=== PATIENT | female | born 1960 | race Caucasian/White ===

== ENCOUNTER 2019-03-12 04:46 | Emergency (ER) | payer MEDICARE ==
[~2019-03-12] VITALS: Ht 165.1 cm; Wt 102.1 kg
--- OUTSIDE RECORDS SUMMARY | ~2019-03-12 | XMS | Clinical Summary ---
Demographics + + + | Address | [address] | | | [place] [address] | + + + | Home Phone | | + + + | Preferred Language | Unknown | + + + | Marital Status | | + + + | Episcopalian Affiliation | Unknown | + + + | Race | Unknown | + + + | Ethnic Group | Unknown | + + + Author + + + | Author | [facility] | + + + | Organization | [facility] | + + + | Address | Unknown | + + + | Phone | Unavailable | + + + Support + + +---------+ + | Name | Relationship | Address | Phone | + + +---------+ + | Leonor Warner | ECON | Unknown | | + + +---------+ + Care Team Providers + +------+ + | Care Rural Service Engineer Name | Role | Phone | + +------+ + | Daisha Fletcher | PP | Unavailable | + +------+ + Allergies + + + + + + | Active Allergy | Reactions | Severity | Noted | Comments | | | | | Date | | + + + + + + | Penicillins | Mental Changes | High | 01/12/20 | Passed out as | | | | | 17 | child | + + + + + + Current Medications + + +-------+---------+------+------+-------+ | Prescription | Sig. | Disp. | Refills | Star | End | Statu | | | | | | t | Date | s | | | | | | Date | | | + + +-------+---------+------+------+-------+ | Cholecalciferol | Take 5,000 Units by | | | | | Activ | | (VITAMIN D-3 PO) | mouth daily. | | | | | e | + + +-------+---------+------+------+-------+ | traMADol (ULTRAM) | Take 50 mg by mouth | | | | | Activ | | 50 MG tablet | every 6 (six) hours | | | | | e | | | as needed for Pain. | | | | | | + + +-------+---------+------+------+-------+ | | Take 1 tablet by | | | | | Activ | | HYDROcodone-acetamin | mouth every 6 (six) | | | | | e | | ophen (NORCO) | hours as needed for | | | | | | | 7.5-325 MG per | Pain. | | | | | | | tablet | | | | | | | + + +-------+---------+------+------+-------+ | gabapentin | Take 300 mg by mouth | | | | | Activ | | (NEURONTIN) 600 MG | 3 (three) times | | | | | e | | tablet | daily. | | | | | | + + +-------+---------+------+------+-------+ | glipiZIDE | Take 2.5 mg by mouth | | | | | Activ | | (GLUCOTROL) 2.5 MG | daily. | | | | | e | | 24 hr tablet | | | | | | | + + +-------+---------+------+------+-------+ | BUPROPION HCL PO | Take 300 mg by | | | | | Activ | | | mouth. | | | | | e | + + +-------+---------+------+------+-------+ | | Take 1 tablet by | | | | | Activ | | lisinopril-hydrochlo | mouth daily. | | | | | e | | rothiazide | | | | | | | | (ZESTORETIC) 20-12.5 | | | | | | | | MG per tablet | | | | | | | + + +-------+---------+------+------+-------+ | METFORMIN HCL PO | Take 1,000 mg by | | | | | Activ | | | mouth 2 (two) times | | | | | e | | | daily. | | | | | | + + +-------+---------+------+------+-------+ | Albuterol Sulfate | Inhale 2 puffs into | | | | | Activ | | (VENTOLIN HFA IN) | the lungs as needed. | | | | | e | + + +-------+---------+------+------+-------+ Active Problems + + + | Problem | Noted Date | + + + | Right shoulder pain | 01/12/2015 | + + + Family History + + +------+ + | Medical History | Relation | Name | Comments | + + +------+ + | Cancer | Father | | | + + +------+ + | Heart attack | Mother | | | + + +------+ + | Hypertension | Mother | | | + + +------+ + | Stroke | Mother | | | + + +------+ + + +------+--------+ + | Relation | Name | Status | Comments | + +------+--------+ + | Father | | Alive | | + +------+--------+ + | Mother | | | | + +------+--------+ + Social History + +-------+ +--------+------+ | Tobacco Use | Types | Packs/Day | Years | Date | | | | | Used | | + +-------+ +--------+------+ | Never Smoker | | | | | + +-------+ +--------+------+ + + +---------+ + | Alcohol Use | Drinks/We | oz/Week | Comments | | | ek | | | + + +---------+ + | Yes | | | once a week | + + +---------+ + + + + | Sex Assigned at | Date Recorded | | | | + + + | Not on file | | + + + Last Filed Vital Signs + + + + | Vital Sign | Reading | Time Taken | + + + + | Blood Pressure | 134/90 | 01/12/2015 4:00 PM PST | + + + + | Pulse | 96 | 01/12/2015 4:00 PM PST | + + + + | Temperature | 36.8 C (98.3 F) | 01/12/2015 2:00 PM PST | + + + + | Respiratory Rate | 18 | 01/12/2015 4:00 PM PST | + + + + | Oxygen Saturation | 96% | 01/12/2015 4:00 PM PST | + + + + | Inhaled Oxygen | - | - | | Concentration | | | + + + + | Weight | 124.7 kg (275 lb) | 01/12/2015 2:00 PM PST | + + + + | Height | 165.1 cm (5' 5") | 01/12/2015 2:00 PM PST | + + + + | Body Mass Index | 45.76 | 01/12/2015 2:00 PM PST | + + + + Plan of Treatment Not on file Results Not on filefrom Last 3 Months Insurance + +--------+ +------+-------+ + | Payer | Benefi | Subscriber | Type | Phone | Address | | | t Plan | ID | | | | | | / | | | | | | | Group | | | | | + +--------+ +------+-------+ + | MEDICAID | JUHI | [id number] | | | [address] | | | N | | | | [place], [place] | | | [place] | | | | [phone] | | | HEEL SCOURER | | | | | + +--------+ +------+-------+ + + +--------+ +--------+ + + | Guarantor Name | Accoun | Relation to | Date | Phone | Billing Address | | | t Type | Patient | of | | | | | | | | | | + +--------+ +--------+ + + | REYNA FOWLER | Person | Self [birth year] Home: | [address] | | | al/Fam | | 1959 | [phone] [place] | | | [place] | | | [phone] | [phone] | + +--------+ +--------+ + +
--- OUTSIDE RECORDS SUMMARY | ~2019-03-12 | XMS | Clinical Summary ---
Demographics + + + | Address | [address] | | | [place] [address] | + + + | Home Phone | | + + + | Preferred Language | Unknown | + + + | Marital Status | | + + + | Hindu Affiliation | Unknown | + + + | Race | Unknown | + + + | Ethnic Group | Unknown | + + + Author + + + | Author | [facility] | + + + | Organization | [facility] | + + + | Address | Unknown | + + + | Phone | Unavailable | + + + Support + + +---------+ + | Name | Relationship | Address | Phone | + + +---------+ + | Leonor Warner | ECON | Unknown | | + + +---------+ + Care Team Providers + +------+ + | Care Strap Stitcher Name | Role | Phone | + [...] +------+-------+ + | MEDICAID | JUHI | [id number] | | | [address] | | | N | | | | [place], [place] | | | [place] | | | | [phone] | | | TOBAC[employer] GRADER | | | | | + +--------+ [...] | [place] | | | [phone] | [phone] | + +--------+ +--------+ + +
[2019-03-12] MEDS ORDERED: METFORMIN HCL500 M1 PO (05:01)
[2019-03-12] MEDS ORDERED: GLIPIZIDE XL10 MG PO (05:01)
[2019-03-12] MEDS ORDERED: [UNRECOGNIZED DRUG - OTHER] (05:02)
[2019-03-12] MEDS ORDERED: ATORVASTATIN CA20 MG PO (05:02)
[2019-03-12] MEDS ORDERED: LISINOPRIL-HCT1 EAC1 PO (05:02)
--- NOTE | 2019-03-12 13:42 | EKG ---
[facility] [address] [place], [place] [address] Signed Normal sinus rhythm Right bundle branch block Left anterior fascicular block Bifascicular block Minimal voltage criteria for LVH, may be normal variant Possible Lateral infarct , age undetermined Abnormal ECG No previous ECGs available Confirmed by OFELIA MACKENZIE DO ([id number]) on 03/12/2019 1:42:00 PM Electronically Signed By: OFELIA MACKENZIE DO 03/12/19 1342 PATIENT NAME: ERENDIRA METCALF CAIO Electrocardiogram DATE OF : 64 PHYSICIAN: OFELIA MACKENZIE DO REPORT #: [id number] REPORT IS CONFIDENTIAL AND NOT TO BE RELEASED WITHOUT AUTHORIZATION
== END 2019-03-12 06:43 | disposition home or self-care (01) ==
LOC: ED 04:46
DX: R07.89 Other chest pain (principal); Z00.01 Encounter for general adult medical examination with abnormal findings; I10 Essential (primary) hypertension; E11.9 Type 2 diabetes mellitus without complications; Z90.49 Acquired absence of other specified parts of digestive tract; Z88.0 Allergy status to penicillin; Z88.1 Allergy status to other antibiotic agents; Z79.84 Long term (current) use of oral hypoglycemic drugs
CPT/HCPCS: 71045; 80053; 84484; 85025; 85379; 93005; 93010; 96374; 99285-25; J1885

== ENCOUNTER 2022-04-18 05:55 | Day surgery (SDC) | payer MEDICARE ==
[~2022-04-18] VITALS: Ht 165.1 cm; Wt 113.2 kg
[~2022-04-18 05:55] MED LIST: ATORVASTATIN CA20 MG PO; BAYER CHEWABLE81 MG PO; BUPROPION XL300 MG PO; GABAPENTIN600 MG PO; GLIPIZIDE XL10 MG PO; LISINOPRIL-HCT1 EAC1 PO; METFORMIN HCL500 M1 PO; MULTI VITAMIN1 EACH PO; OSTERA TABLET1 EACH PO; OZEMPIC1 MG/0.71 SQ; ULTRAM50 MG PO; [UNRECOGNIZED DRUG - OTHER]
--- NOTE | 2022-04-18 09:30 | NUR ---
04/18/22 0930 Lou Fine 0920-PATIENT ARRIVED TO PACU ON 6L MASK NONAROUSABLE ORAL AIRWAY IN PLACE RR EVEN. RN DOING JAW THRUST TO MAINTAIN OPEN AIRWAY. INCISION CDI COVERED WITH ABDOMINAL BINDER. SR WITH BBB. IVF INFUSING. 0921-PATIENT MAINTAINING OWN AIRWAY. HOB ELEVATED.
[2022-04-18] MEDS ORDERED: IBUPROFEN600 MG PO (09:38)
[2022-04-18] MEDS ORDERED: OXYCODON-ACETA1 EAC2 PO (09:38)
[2022-04-18] MEDS ORDERED: ACETAMINOPHEN500 MG PO (09:39)
--- NOTE | 2022-04-18 10:15 | NUR ---
1015-PATIENT BACK TO ROOM FROM PACU ON RA. RECEIVED REPORT FROM SAMIR ARMENTA. PATIENT IS AWAKE. O2 SATS IN LOW 90'S. PATIENT ENCOURAGED TO TAKE DEEP BREATHS AND COUGH. RESP EVEN AND UNLABORED. RATES PAIN 2/10 AND THIS IS TOLERABLE AT THIS TIME. DENIES NAUSEA. DRESSING HAS A SMALL AMOUNT OF RED DRAINAGE. PATIENT HAS ABDOMINAL BINDER ON AND PILLOW TO SPLINT WITH WHEN COUGHING. PROVIDED PATIENT WITH WATER, PUDDING, AND APPLESAUCE. AT BEDSIDE. CALL LIGHT WITHIN REACH.
--- NOTE | 2022-04-18 10:39 | NUR ---
PT ALERT, ORIENTED AND SUPPORTED BY HER TRAY. PT SEEMS SOMEWHAT ANXIOUS, BUT PLEASANT. ALL QUESTIONS ASKED ANSWERED. WILL STAY, GAVE BLESSING AND WILL FOLLOW
--- NOTE | 2022-04-18 10:52 | NUR ---
1045-PATIENT UP TO RESTROOM WITH 1 RN ASSIST. GAIT STEADY AND TOLERATED WELL. PATIENT VOIDED. 1050-PATIENT BACK TO BED. PATIENT WOULD LIKE TO SIT ON THE SIDE BED FOR NOW. RATES PAIN 3/10 AND STATES THIS IS TOLERABLE FOR HER AT THIS TIME.
--- NOTE | 2022-04-18 11:18 | NUR ---
1118-PATIENT AWAKE LAYING ON LEFT SIDE. RESP EVEN AND UNLABORED. O2 SATS FROM 89%-95% ON RA. ENCOURAGED COUGHING AND DEEP BREATHING. RATES PAIN 4/10. PAIN MEDICATION GIVEN PER EMAR. DRESSING HAS A SMALL AMOUNT OF RED DRAINAGE. HAS PILLOW TO SPLINT WITH. AT BEDSIDE. CALL LIGHT WITHIN REACH. [id number]- CONTINUOUS O2 SAT MONITORING. SATS BETWEEN 92%-96%. PATINET IS READY TO GO HOME. 1150-RATES PAIN 2/10.
--- NOTE | 2022-04-18 12:00 | NUR ---
PROVIDED PATIENT AND WITH DISCHARGE INSTRUCTIONS. ALL QUESTIONS ANSWERED. RATES PAIN 2/10. PATIENT AMBULATES TO WHEELCHAIR AND RIDE PROVIDED TO FRONT OF HOSPITAL WHERE WAS WAITING.
--- NOTE | 2022-04-19 15:30 | PATH ---
[facility] [address], [place] [address] Signed SPECIMEN(S): A PORTION OF OMENTUM SPECIMEN(S): B VENTRAL HERNIA SAC SPECIMEN SOURCE: A. PORTION OF OMENTUM B. VENTRAL HERNIA SAC CLINICAL HISTORY: Ventral incisional hernia. Repair of incarcerated incisional hernia. FINAL PATHOLOGIC DIAGNOSIS: A. Portion of omentum: - Portions of benign omentum. B. Ventral hernia sac: - Benign membranous fibrovascular and adipose tissue consistent with hernia sac. - Negative for atypical features. JVR:[facility]:C2NR MICROSCOPIC EXAMINATION: Histologic sections of all submitted blocks are examined by light microscopy. These findings, together with the gross examination, support the pathologic diagnosis. GROSS DESCRIPTION: Two specimens are received in two containers, labeled "JA." A. The specimen, labeled "JA, A," and designated on the requisition "portion of omentum," is received in formalin and consists of a portion of yellow-snyder, lobulated omentum (9.0 x 8.0 x 3.4 cm). The tissue is serially sectioned to reveal a yellow-snyder fatty cut surface. No lesions, masses or nodules are grossly identified. Diesel Technology Instructor sections are submitted in cassette (A1). B. The specimen, labeled "JA, B," and designated on the requisition "ventral hernia sac," is received in formalin and consists of a portion of yellow-snyder fatty to pink-snyder membranous soft tissue (6.5 x 2.3 x 1.4 cm). The tissue is serially sectioned to reveal yellow-snyder fatty to pink-snyder soft cut surfaces. Diesel Technology Instructor sections are submitted in cassettes (B1-B2). AC (under the direct supervision of a pathologist) The Gross Description was prepared using a voice recognition system. The report PATIENT NAME: ERENDIRA METCALF PATHOLOGY DATE OF : 64 REPORT #: [id number] PHYSICIAN: CHANDAN LEE PCP: ANA ROSA YOST PAC REPORT IS CONFIDENTIAL AND NOT TO BE RELEASED WITHOUT AUTHORIZATION [facility] [address], [place] [address] Signed was reviewed for accuracy; however, sound-alike word errors, addition and/or deletions may occur. If there is any question about this report, please contact Client Services. PERFORMING LABORATORY: The technical component was performed by [facility], [address] [place] [id number] (CLIA# [id number]). Professional interpretation was performed by [facility] - [address] [address] (CLIA#: [id number]). Diagnostician: Amor Titus MD Pathologist Electronically Signed 04/19/2022 Copies: ~ PATIENT NAME: ERENDIRA METCALF PATHOLOGY DATE OF : 64 REPORT #: [id number] PHYSICIAN: CHANDAN PATHOLOGY PCP: ANA ROSA YOST PAC REPORT IS CONFIDENTIAL AND NOT TO BE RELEASED WITHOUT AUTHORIZATION
--- NOTE | 2022-04-22 12:13 | OR ---
[facility] [address] [place] [address] Signed DATE OF OPERATION: 04/18/2022 SURGEON: Cris Beasley MD PREOPERATIVE DIAGNOSES: 1. Incarcerated incisional hernia at supraumbilical area. 2. Morbid obesity. POSTOPERATIVE DIAGNOSES: 1. Incarcerated incisional hernia at supraumbilical area. 2. Morbid obesity. 3. Incarcerated omentum. PROCEDURES: 1. Repair of incarcerated incisional hernia. 2. Partial omentectomy. 3. Implantation of Prolene mesh underlay technique. ANESTHESIA: General endotracheal, Cris Barboza CRNA and local 0.25% Marcaine with epinephrine 20 mL. INDICATION: DICTATION ENDS HERE MD STEPHY Ham/MODL /[id number] Copies: ~ Electronically Signed By: CRIS BEASLEY MD 04/22/22 1213 PATIENT NAME: ERENDIRA METCALF OPERATIVE REPORT DATE OF : 64 REPORT #: [id number] PHYSICIAN: CRIS BEASLEY MD PCP: ADDLEMAN,ANA ROSA K PAC REPORT IS CONFIDENTIAL AND NOT TO BE RELEASED WITHOUT AUTHORIZATION
--- NOTE | 2022-04-22 12:13 | OR ---
[facility] [address], [place] [address] Signed DATE OF OPERATION: 04/18/2022 SURGEON: Cris Beasley MD PREOPERATIVE DIAGNOSES: 1. Incarcerated incisional hernia at supraumbilical area. 2. Morbid obesity. POSTOPERATIVE DIAGNOSES: 1. Incarcerated incisional hernia at supraumbilical area. 2. Morbid obesity. 3. Incarcerated omentum. PROCEDURES: 1. Repair of incarcerated incisional hernia. 2. Partial omentectomy. 3. Implantation of Prolene mesh underlay technique. ANESTHESIA: General endotracheal, Cris Barboza CRNA and local 0.25% Marcaine with epinephrine 20 mL. INDICATION: This morbidly obese 61-year-old white woman is a patient of Ana Rosa Yost. She has been on a weight loss program and has now lost 70 pounds. She still remains quite obese in the abdomen. She does have a nonreducible hernia in the supraumbilical area related to prior trocar site from surgery in the past. The area is nonreducible and occasionally painful. She has no signs of bowel obstruction. She is admitted at this time to undergo repair of the hernia. She understands the risk of bleeding, infection, and recurrence. FINDINGS: The fascial defect was approximately 3 to 4 cm. The fascia associated with it was quite thin and attenuated., no doubt related to her obesity. Implantation of Prolene mesh was undertaken as part of the repair at least 4 cm from the edge of the fascial defect circumferentially. The fascia was able to be reapproximated transversely over the mesh as well. The hernia was nonreducible and even with relaxation, certainly nonreducible and found to contain omentum. The omentum really could not be reduced given its bulk nature and relatively small size of the defect and therefore was excised. Mesh was implanted in Electronically Signed By: CRIS BEASLEY MD 04/22/22 1213 PATIENT NAME: ERENDIRA METCALF OPERATIVE REPORT DATE OF : 64 REPORT #: [id number] PHYSICIAN: CRIS BEASLEY MD PCP: ANA ROSA YOST PAC REPORT IS CONFIDENTIAL AND NOT TO BE RELEASED WITHOUT AUTHORIZATION [facility] [address] [place], [place] [address] Signed the properitoneal space after reapproximating the remnant of the hernia sac. There was no contact of the mesh with intra-abdominal viscera otherwise. DESCRIPTION OF PROCEDURE: The patient was brought to the operating room, given a general endotracheal anesthetic. Preoperative antibiotic Levaquin was given on the basis of her drug and allergy profile. The abdomen was prepared with a chlorhexidine solution and draped sterilely. A supraumbilical incision was made. Dissection was carried through the subcutaneous tissue encountering a bulky fatty nonreducing hernia. Circumferential blunt dissection was undertaken ultimately defining well the fascial defect, which was approximately 4 cm in the supraumbilical fascial area. Despite various efforts, the hernia could not be reduced. The hernia sac was opened and was found to contain omentum. The omentum was sequentially secured with hemostats at the base, transecting and amputating a glob of omentum about the size of a baseball. The omental pedicles were secured with 2-0 Vicryl ties. The properitoneal space was then developed securing the peritoneum circumferentially at least 4 cm around the fascial defect itself. The remnant of the peritoneum was reapproximated with running 2-0 Vicryl suture providing a biologic barrier for implantation of mesh. A 6 inch x 6 inch piece of Prolene mesh was cut to a smaller size and secured in the properitoneal space with interrupted 0 Prolene sutures with Prolene pledgets. Care was taken to provide good coverage of the defect in an underlay technique. The fascial edges were rather thinned out . They were reapproximated transversely over the mesh with interrupted horizontal mattress sutures of 0 Prolene with Prolene pledgets as well. 20 mL of 0.25% Marcaine was injected locally. This deep subcutaneous tissue was reapproximated with interrupted 2-0 Vicryl suture. The skin was closed with interrupted 3-0 Vicryl. Steri-Strips were applied as was an Acticoat dressing. The patient was ultimately extubated without problem, taken to the recovery room in good condition having suffered no complication. Blood loss was minimal. Complications were none. Sponge, needle and instrument counts were reported as correct x3. MD STEPHY Ham/PARISH /[id number] Electronically Signed By: CRIS BEASLEY MD 04/22/22 1213 PATIENT NAME: ERENDIRA METCALF OPERATIVE REPORT DATE OF : 64 REPORT #: [id number] PHYSICIAN: CRIS BEASLEY MD PCP: ANA ROSA YOST PAC REPORT IS CONFIDENTIAL AND NOT TO BE RELEASED WITHOUT AUTHORIZATION [facility] [address] [place], [place] [address] Signed cc: Ana Rosa Yost PA-C Copies: ~ Electronically Signed By: CRIS BEASLEY MD 04/22/22 1213 PATIENT NAME: ERENDIRA METCALF OPERATIVE REPORT DATE OF : 64 REPORT #: [id number] PHYSICIAN: CRIS BEASLEY MD PCP: ANA ROSA YOST PAC REPORT IS CONFIDENTIAL AND NOT TO BE RELEASED WITHOUT AUTHORIZATION
== END 2022-04-18 12:00 | disposition home or self-care (01) ==
LOC: DS 05:55
PROVIDERS: ATTEND Surgery
PROC: 0WUF0JZ Supplement Abdominal Wall with Synthetic Substitute, Open Approach (ICD-10-PCS; principal; 2022-04-18 06:45)
DX: K43.0 Incisional hernia with obstruction, without gangrene (principal); E66.01 Morbid (severe) obesity due to excess calories; Z86.16 Personal history of COVID-19; Z68.41 Body mass index [BMI] 40.0-44.9, adult; E11.9 Type 2 diabetes mellitus without complications; Z90.49 Acquired absence of other specified parts of digestive tract; Z98.51 Tubal ligation status; Z88.0 Allergy status to penicillin; Z79.82 Long term (current) use of aspirin; I10 Essential (primary) hypertension
CPT/HCPCS: C1781; J0330; J1100; J1644; J1885; J1956; J2250; J2405; J2704; J2765; J3010; J7121

== ENCOUNTER 2024-07-23 05:52 | Day surgery (SDC) | payer MEDICARE ==
[2024-07-20 11:28] VITALS: BP 101/65
[~2024-07-23] VITALS: Ht 165.1 cm; Wt 113.2 kg
[~2024-07-23 05:52] MED LIST changes: +ACETAMINOPHEN500 MG PO; +HYDROCODON-ACE1 EA11 PO; +IBUPROFEN600 MG PO; +LACTATED RINGER'S 1,000 ML IV SCH; +OXYCODON-ACETA1 EAC2 PO
[2024-07-23 06:03] VITALS: BP 140/61
[2024-07-23] MEDS ORDERED: HEParin SOD (PORCINE) 5,000 UNIT/0.5 ML SYR SUB-Q SCH (07:00)
[2024-07-23] MEDS ORDERED: CEFAZOLIN SODIUM 2 GM/20 ML SYR IV SCH (07:00)
[2024-07-23] MEDS ORDERED: IBLOOD GLUCOSE TEST STRIP 1 EA TEST VI PRN ×2 (07:00→07:15)
[2024-07-23] MEDS ORDERED: LIDOCAINE HCL 1% 5 ML SDV INJ ONE (07:00)
[2024-07-23] MEDS ORDERED: dexmedeTOMIDine HCl 200 MCG/2 ML VIAL ONE (07:11)
[2024-07-23] MEDS ORDERED: KETOROLAC TROMETHAMINE 30 MG/ML VIAL ONE (07:11)
[2024-07-23] MEDS ORDERED: KETAMINE in NS 50 MG/5 ML SYR ONE (07:11)
[2024-07-23] MEDS ORDERED: ondansetron HCL 4 MG/2 ML VIAL ONE (07:11)
[2024-07-23] MEDS ORDERED: DEXAMETHASONE SOD PHOS 4 MG/ML VIAL ONE (07:11)
[2024-07-23] MEDS ORDERED: LIDOCAINE HCL 1% 30 ML SDV ONE (07:11)
[2024-07-23] MEDS ORDERED: ROCURONIUM BROMIDE 50 MG/5 ML SYR ONE (07:11)
[2024-07-23] MEDS ORDERED: propofoL 200 MG/20 ML VIAL ONE (07:11)
[2024-07-23] MEDS ORDERED: NALOXONE HCL 0.4 MG SYR IV PRN ×2 (07:15→10:45)
[2024-07-23] MEDS ORDERED: fentaNYL citrate 50 MCG/ML SDV IV PRN (07:15)
[2024-07-23] MEDS ORDERED: ondansetron HCL 4 MG/2 ML VIAL IV PRN (07:15)
[2024-07-23] MEDS ORDERED: SUGAMMADEX SODIUM 200 MG/2 ML ML ONE (07:16)
[2024-07-23] MEDS ORDERED: ACETAMINOPHEN 1,000 MG/100 ML VIAL ONE (07:57)
[2024-07-23] MEDS ORDERED: LACTATED RINGER'S 1,000 ML IV ONE ×2 (08:10→09:42)
[2024-07-23] MEDS ORDERED: ePHEDrine sulfate 50 MG/ML AMP ONE (08:29)
--- NOTE | 2024-07-23 10:35 | NUR ---
07/23/24 Arash5 Lisandra Lobo 1020- PT ARRIVES TO PACU, SEMI SAN POSITION. OPA IN PLACE, BREATHING EVEN AND NON LABORED, O2 AT 6L PER MASK. LR INFUSING TO RFA IV, PT NON REACTIVE TO STIMULUS AT THIS TIME. DRESSING IN PLACE TO MIDLINE ABD WITH BLEKYS DRAIN, ABD BINDER IN PLACE. ABD SOFT, NON DISTENDED. ALL MONITORS IN PLACE. 1023- PT REACTIVE TO STIMULUS, MOVING HEAD SIDE TO SIDE AND MOVING OPA WITH TONGUE. PT FOLLOWS COMMANDS TO REMOVE OPA, O2 REMAINS IN PLACE. PT REORIENTED TO TIME AND PLACE. PT FALLS BACK TO SLEEP. 1033- PT WAKES EASILY TO VERBAL STIMULI, MOVED TO ROOM AIR AT THIS TIME. PT REORIENTED TO TIME AND PLACE, DENIES NAUSEA. PAIN 2/10 AND TOLERABLE AT THIS TIME. PT UPDATED ON PLAN OF CARE.
[2024-07-23] MEDS ORDERED: ACETAMINOPHEN 500 MG TAB PO PRN (10:45)
[2024-07-23] MEDS ORDERED: IBUPROFEN 600 MG TAB PO PRN (10:45)
[2024-07-23] MEDS ORDERED: LACTATED RINGER'S 1,000 ML IV SCH (10:45)
[2024-07-23] MEDS ORDERED: OXYCODONE/APAP 7.5/325 TAB PO PRN (10:45)
[2024-07-23] MEDS ORDERED: ACETAMINOPHEN500 MG PO (10:47)
[2024-07-23] MEDS ORDERED: OXYCODON-ACETA1 EAC2 PO (10:47)
[2024-07-23] MEDS ORDERED: IBUPROFEN600 MG PO (10:47)
[2024-07-23 10:52] VITALS: BP 117/55
--- NOTE | 2024-07-23 11:20 | NUR ---
1050 PT ARRIVED TO DAY SURGERY ROOM 9 FROM PACU VIA STRECHER. REPORT TAKEN FROM BERNARD ARMENTA. VITALS TAKEN. IV ASSESSED. PT REPORTS 4/10 PAIN. PT REPORTS NO NAUSEA. BREATHING EQUAL AN UNLABORED. 1115 PT ABLE TO GET UP FROM BED WITH ASSISTANCE TO COMODE. PT ABLE TO URINATE 150 MLS OF YELLOW URINE. PT BACK IN BED. ABDOMINAL BINDER ADJUSTED. 1118 PAIN MEDICATION GIVEN. 1120 BELKYS DRAIN DRAINED 30 MLS OF SEROSANGUINEOUS DRAINGE. PT RESTING IN BED WITH AT BEDSIDE. PT HAS CALL LIGHT WITHIN REACH.
[2024-07-23 12:00] VITALS: BP 120/56
--- NOTE | 2024-07-23 12:04 | NUR ---
1200 HOURLY ROUNDING DONE. PT ABLE TO AMBULATE TO BATHROOM AND VOID. VITALS DONE. PT PAIN 3/10 WHEN RESTING. PT REPORTS NO NAUSEA. PT HAS ABDONINAL BINDING IN PLACE. IV ASSESSED. 1205 PT HAS BEEN ABLE TO TOLERATE PO JELLO, PO WATER AND ABLE TO VOID. PT GETTING DRESSED WITH HUSBANDS ASSISTANCE. CALL LIGHT WITHIN REACH.
--- NOTE | 2024-07-23 12:36 | NUR ---
1215 DISCHARGE INFORMATION GONE OVER WITH PT AND . NO QUESTIONS AT THIS TIME. 1218 IV DISCONINUED. 1220 PT DISCAHRGED FROM DAY SURGERY VIA WHEELCHAIR TO THE FRONT OF THE HOSPITAL TO PT'S HUSBANDS CAR.
--- NOTE | 2024-07-25 13:47 | OR ---
[facility] [address] [place], [place] [address] Signed DATE OF OPERATION: 07/23/2024 SURGEON: Cris Beasley MD PREOPERATIVE DIAGNOSIS: New incisional hernia with incarcerated viscus (colon and omentum). POSTOPERATIVE DIAGNOSIS: New incisional hernia with incarcerated viscus (colon and omentum). Fascial defect 12 cm. PROCEDURES: Repair of incarcerated incisional hernia with reduction of incarcerated viscus and implantation of Prolene mesh submuscular position (fascial defect 12 cm). ANESTHESIA: General endotracheal, Mikaela Farhana, [employer]ING [employer] and local 10 mL of 0.25% Marcaine with epinephrine. INDICATION: This 63-year-old white woman is the patient of YENNIFER Keller. She is known to me from the past having undergone an incisional hernia in the supraumbilical area. She presented with bulging in the region of previous repair somewhat inferior to it and a CT scan was obtained, which demonstrated incarcerated incisional hernia with omentum and small bowel loops. She has had cholecystectomy in the past as well as tubal ligation and repair of incisional hernia in the midline in 2021 cephalad to the current area of problem. She is admitted at this time to undergo repair of the new incisional hernia which is incarcerated. She understands the risk of bleeding, infection, and recurrence, particularly given her significant obesity and wished to proceed. FINDINGS: The previous repair was quite intact. Good fascial support was noted cephalad to the current defect which was inferior to it. The fascial defect on this occasion is 12 cm. Incarcerated intraabdominal viscera were freed up completely. The submuscular space was developed and the posterior sheath and the tendon peritoneum reapproximated over the intraabdominal viscera allowing for implantation of Prolene mesh in a submuscular area covering the defect well. Transverse reapproximation of the fascia was accomplished as well. A drain was placed. PROCEDURE IN DETAIL: Electronically Signed By: CRIS BEASLEY MD 07/25/24 1347 PATIENT NAME: ERENDIRA METCALF OPERATIVE REPORT DATE OF : 64 REPORT #: [id number] PHYSICIAN: CRIS BEASLEY MD PCP: ANA ROSA YOST PAC REPORT IS CONFIDENTIAL AND NOT TO BE RELEASED WITHOUT AUTHORIZATION [facility] [address] [place], [place] [address] Signed The patient was brought to the operating room, given a general endotracheal anesthetic. Preoperative antibiotic Ancef was given. The thick abdominal wall pannus was prepared with a chlorhexidine solution and draped sterilely. An Ioban dressing was applied. Incision made cephalad to the umbilicus and taken inferior to it somewhat. Dissection was carried through the abdominal pannus encountering ultimately a thick hernia sac. This was dissected free from the surrounding soft tissue. The superior aspect of the midline previous fascial repair was noted with scarring related to previously implanted mesh. The edges of the fascial defect were freed from the underlying hernia sac circumferentially. Blunt dissection was used to widely separate the hernia sac from the overlying fascia extending at least 4 cm superior and inferiorly and 6 cm laterally. The amorphous hernia sac and its contents were freed from the intraabdominal viscera and examined. There was no sign of compromised bowel or anything of that sort. The submuscular space was developed more fully, which included the posterior fascia and tendon peritoneum. This was ultimately reapproximated with 2-0 Vicryl suture. Once the submuscular space was fully and completely freed laterally and as far as possible inferiorly and superiorly (encountering of course previous fibrotic layer from previous mesh repair). A 6 inch x 6 inch piece of Prolene mesh was cut to an elliptical configuration. This was secured in the properitoneal space with interrupted 0 Prolene sutures with Prolene pledgets. The fascial defect had been measured at 12 cm. Transverse closure of the fascial defect was deemed most appropriate for a stress free closure. This was accomplished with interrupted 0 Prolene sutures in a horizontal mattress configuration using Prolene pledgets as well. A 10 mL of 0.25% Marcaine with epinephrine injected locally. Through a separate stab incision in the left lower quadrant, a 7 mm flat Tex drain was placed in the fascial layer. Julia's layer was reapproximated with interrupted 2-0 Vicryl obliterating the space as much as possible. The skin was then closed with running subcuticular 3-0 Vicryl. Steri-Strips were applied as well as an Acticoat dressing. An abdominal binder was additionally applied. She was extubated without excessive coughing or straining and taken to recovery room in good condition. MD STEPHY Ham/[id number] /[id number] cc: YENNIFER Keller Electronically Signed By: CRIS BEASLEY MD 07/25/24 1347 PATIENT NAME: METCALFERENDIRA OPERATIVE REPORT DATE OF : 64 REPORT #: [id number] PHYSICIAN: CRIS BEASLEY MD PCP: ANA ROSA YOST PAC REPORT IS CONFIDENTIAL AND NOT TO BE RELEASED WITHOUT AUTHORIZATION [address] [place], [place] [address] Signed Copies: ~ Electronically Signed By: CRIS BEASLEY MD 07/25/24 1347 PATIENT NAME: ERENDIRA METCALF OPERATIVE REPORT DATE OF : 64 REPORT #: [id number] PHYSICIAN: CRIS BEASLEY MD PCP: ANA ROSA YOST PAC REPORT IS CONFIDENTIAL AND NOT TO BE RELEASED WITHOUT AUTHORIZATION
== END 2024-07-23 12:20 | disposition home or self-care (01) ==
LOC: DS 05:52
PROVIDERS: ATTEND Surgery
PROC: 0WUF0JZ Supplement Abdominal Wall with Synthetic Substitute, Open Approach (ICD-10-PCS; principal; 2024-07-23 07:30)
DX: K43.0 Incisional hernia with obstruction, without gangrene (principal); I10 Essential (primary) hypertension; E11.9 Type 2 diabetes mellitus without complications; E66.01 Morbid (severe) obesity due to excess calories; Z79.84 Long term (current) use of oral hypoglycemic drugs; Z79.899 Other long term (current) drug therapy; Z88.0 Allergy status to penicillin; Z68.41 Body mass index [BMI] 40.0-44.9, adult
CPT/HCPCS: 00750; C1781; J0131; J0690; J1100; J1644; J1885; J2405; J2704; J3490; J7121

== ENCOUNTER 2024-12-14 20:11 | Emergency (ER) | payer MEDICARE ==
[~2024-12-14] VITALS: Ht 165.1 cm; Wt 112.9 kg
[~2024-12-14 20:11] MED LIST changes: -LACTATED RINGER'S 1,000 ML IV SCH
[2024-12-14] MEDS ORDERED: APIXABAN 5 MG TAB PO ONE (20:45)
[2024-12-14] MEDS ORDERED: ELIQUIS5 MG PO (20:48)
[2024-12-14 20:57] VITALS: BP 116/87
== END 2024-12-14 20:58 | disposition home or self-care (01) ==
LOC: ED 20:11
DX: I82.401 Acute embolism and thrombosis of unspecified deep veins of right lower extremity (principal); I10 Essential (primary) hypertension; E11.9 Type 2 diabetes mellitus without complications; Z88.0 Allergy status to penicillin; Z88.1 Allergy status to other antibiotic agents; Z79.84 Long term (current) use of oral hypoglycemic drugs; Z79.899 Other long term (current) drug therapy
CPT/HCPCS: 99283

== ENCOUNTER 2025-07-30 07:07 | Emergency (ER) | payer MEDICARE ==
[~2025-07-30] VITALS: Ht 165.1 cm; Wt 110.4 kg
[~2025-07-30 07:07] MED LIST changes: +ELIQUIS5 MG PO
[2025-07-30 08:12] VITALS: BP 137/84
== END 2025-07-30 08:12 | disposition home or self-care (01) ==
LOC: ED 07:07
DX: M54.41 Lumbago with sciatica, right side (principal); I10 Essential (primary) hypertension; E11.9 Type 2 diabetes mellitus without complications; Z86.718 Personal history of other venous thrombosis and embolism; Z88.0 Allergy status to penicillin; Z88.1 Allergy status to other antibiotic agents; Z79.01 Long term (current) use of anticoagulants; Z79.84 Long term (current) use of oral hypoglycemic drugs; Z79.899 Other long term (current) drug therapy
CPT/HCPCS: 99283